=== PATIENT | female | born 1960 | race Caucasian/White ===

== ENCOUNTER 2022-06-17 17:24 | Emergency (ER) | payer BC, MEDICAID ==
[~2022-06-17] VITALS: Ht 167.6 cm; Wt 66.0 kg
[2022-06-17 19:15] VITALS: BP 100/51
[2022-06-17] MEDS ORDERED: KETOROLAC 60MG/2ML VIAL IM ONE (19:15)
[2022-06-17 20:10] LABS: CLARITY URINE CLOUDY (CLEAR); COLOR URINE DARK YELLOW (YELLOW); KETONES URINE TRACE (NEGATIVE); LEUKOCYTE ESTERASE URINE TRACE (NEGATIVE); NITRITE URINE NEGATIVE (NEGATIVE); OCCULT BLOOD URINE 1+ (NEGATIVE); PH URINE 5.5 (4.5-8.0); PROTEIN URINE 1+ (NEGATIVE); SPECIFIC GRAVITY URINE 1.029 (1.005-1.030)
[2022-06-17] MEDS ORDERED: CEPH500T MT (20:26)
[2022-06-17] MEDS ORDERED: HYDR453.4 TP (20:26)
[2022-06-17] MEDS ORDERED: ZINC28PA TOP (20:26)
== END 2022-06-17 21:40 | disposition home or self-care (01) ==
LOC: ER 17:24
DX: L24.A9 Irritant contact dermatitis due friction or contact with other specified body fluids (principal); L03.317 Cellulitis of buttock; F17.210 Nicotine dependence, cigarettes, uncomplicated; Z59.00 Homelessness unspecified
CPT/HCPCS: 81003; 96372; 99283; J1885